=== PATIENT | male | born 2005 | race Caucasian/White ===

== ENCOUNTER 2025-06-27 08:56 | Emergency (ER) | payer BC, SELFPAY ==
[2025-06-27 09:00] VITALS: BP 121/65
[2025-06-27 09:49] LABS: Hematocrit 42.0 % (39.0-52.0); Hemoglobin 14.9 g/dL (13.0-18.0); Mean Corp Hgb Conc. 35.5 g/dL (33.0-37.0); Mean Corpuscular Volume 84.8 fL (80.0-94.0); Nucleated Red Blood Cells % 0 % (-); Platelet Count 184 10^3/uL (130-400); Red Cell Dist. Width 11.9 % (11.5-14.5)
[2025-06-27 09:58] LABS: ALT (SGPT) 24 U/L (0-50); AST (SGOT) 34 U/L (17-59); Albumin 4.5 g/dl (3.5-5.0); Alkaline Phosphatase 84 U/L (38-126); Blood Urea Nitrogen 15 mg/dl (9-20); Calcium 9.1 mg/dl (8.4-10.2); Carbon Dioxide 24 mmol/L (22-30); Chloride 100 mmol/L (98-107); Glucose 115 mg/dl (70-99); Potassium 4.1 mmol/L (3.5-5.1); Sodium 133 mmol/L (135-145); Total Protein 7.3 g/dl (6.3-8.2); eGFR > 60.00
[2025-06-27 10:02] LABS: COVID-19 Antigen Negative (Negative)
--- NOTE | 2025-06-27 10:08 | ED.GENMED ---
History of Present Illness
<Ishan Gibson DO, Resident - Last Filed: 06/27/25 11:00>
General
Chief Complaint: Fever
Source: patient and family
Exam Limitations: none
Time Seen by Provider: 06/27/25 09:42
Nursing documentation reviewed up to this point in time: agreed with
History of Present Illness
History of Present Illness:
Shabbir is a 20M w/ no significant past medical history who is presenting with fever, cough, and congestion x 2 days. Patient notes symptoms, particularly fever, starting 2 days ago. Fever ranged from 101-103 over the past two days but upon waking
this morning was 104.6 which prompted the ED visit. He also endorses congestion and cough productive of clear to highlighter yellow sputum for 2 days that has been steadily improving. Patient notes that he has been working at the [employer] while he is on
winter break, but endorses no sick contacts at home. Associated symptoms include neck discomfort, brain fog and mild headache that is aborted with Advil. Has been taking 400 mg Advil intermittently and no Tylenol. Otherwise denies dizziness, chest
pain, SOB, abdominal pain, n/v/d, wheezing, urinary sx, photophobia, phonophobia. Notes he is up to date on vaccinations except seasonal flu.
Past History
<Ishan Gibson DO, Resident - Last Filed: 06/27/25 11:00>
Past History
ED Past Medical History: None
Review of Systems
<Ishan Gibson DO, Resident - Last Filed: 06/27/25 11:00>
Review of Systems
Allergies reviewed?: Yes
All Other Systems: ROS reviewed and negative except as documented in HPI and ROS
Phy Exam
<Ishan Gibson DO, Resident - Last Filed: 06/27/25 11:00>
Physical Exam
Physical Exam:
General: well-developed, well-nourished male in no acute distress, sitting under a bright hospital room light.
HEENT: Normocephalic, atraumatic. EOMI without pain. Sclera anicteric, MM moist.
Neck: Supple, normal ROM, no paraspinal tenderness, Kernig's negative, Brudzinski negative, shotty lymphadenopathy in the anterior and posterior cervical chain.
CV: RRR, no murmurs rubs or gallops, nl S1, S2
Resp: CTAB in all lung bueno, no wheezing, rales, rhonchi, or stridor.
Ab: Soft, nondistended.
Neuro: Awake, alert. Moving all 4s.
Psych: Calm, normal affect.
Scores
<Ishan Gibson DO, Resident - Last Filed: 06/27/25 11:00>
Heart Failure Risk
Heart Failure Risk Score: Not Applicable
Heart Score for Chest Pain Patients
STEMI patient?: Not applicable
Withdrawal Assessment of Alcohol
Withdrawal Assessment Completed?: Not applicable
Course
<Ishan Gibson DO, Resident - Last Filed: 06/27/25 11:00>
Orders/Labs/Results
Orders:
Orders
06/27/25 09:25
COVID-19 Antigen Urgent
Source: Nasal Swab
Complete Blood Count/With Diff Urgent
Comprehensive Metabolic Panel Urgent
Influenza A+B Rapid Molecular Urgent
DEBRA Source: Nasal Swab
Specimen Description:
Abnormal Lab Results
06/27/25
09:25
Absolute Lymphs (auto) 0.4 L 10^3/uL
(1.2-3.4)
Neutrophils % 83.6 H %
(42.2-75.2)
Lymphocytes % 6.5 L %
(20.5-51.1)
Sodium 133 L mmol/L
(135-145)
Glucose 115 H mg/dl
(70-99)
06/27/25 09:25
06/27/25 09:25
Vital Signs
Initial and Last Documented VS:
Initial Vital Signs
Pulse Resp BP Pulse Ox
82 18 121/65 100
06/27/25 09:00 06/27/25 09:00 06/27/25 09:00 06/27/25 09:00
Last Documented Vital Signs
Pulse Resp BP Pulse Ox
82 18 121/65 100
06/27/25 09:00 06/27/25 09:00 06/27/25 09:00 06/27/25 10:12
<Donna Krishnan, DO - Last Filed: 06/27/25 10:45>
Orders/Labs/Results
Orders:
Orders
06/27/25 09:25
COVID-19 Antigen Urgent
Source: Nasal Swab
Complete Blood Count/With Diff Urgent
Comprehensive Metabolic Panel Urgent
Influenza A+B Rapid Molecular Urgent
DEBRA Source: Nasal Swab
Specimen Description:
Abnormal Lab Results
06/27/25
09:25
Absolute Lymphs (auto) 0.4 L 10^3/uL
(1.2-3.4)
Neutrophils % 83.6 H %
(42.2-75.2)
Lymphocytes % 6.5 L %
(20.5-51.1)
Sodium 133 L mmol/L
(135-145)
Glucose 115 H mg/dl
(70-99)
06/27/25 09:25
06/27/25 09:25
Vital Signs
Initial and Last Documented VS:
Initial Vital Signs
Pulse Resp BP Pulse Ox
82 18 121/65 100
06/27/25 09:00 06/27/25 09:00 06/27/25 09:00 06/27/25 09:00
Last Documented Vital Signs
Pulse Resp BP Pulse Ox
82 18 121/65 100
06/27/25 09:00 06/27/25 09:00 06/27/25 09:00 06/27/25 10:12
<Ishan Gibson DO, Resident - Last Filed: 06/27/25 11:00>
MDM/Problems Addressed
Differential Diagnosis Includes:
Influenza, COVID, other viral illness, doubt meningitis, doubt pneumonia
MDM/Problems Addressed:
This is a 20M presenting with 2 days of fevers with cough and congestion. PE only significant for lymphadenopathy. Patient with some neck discomfort but he is fully vaccinated and does not have meningeal signs. WBC WNL. Flu positive. Patient is
within the window for oseltamivir but may provide little benefit. Otherwise recommend supportive care. Patient counseled on using Tylenol in lieu of Advil to control fevers.
<Ishan Gibson DO, Resident - Last Filed: 06/27/25 11:00>
*Pulse Oximetry
SaO2: 100
Oxygen Mode of Delivery: Room air
Patient hypoxic: no
*Critical Care Note
Total Time (30-74mins, 75-104mins- exclusive of procedures): Not Applicable
ED Attending Note
<Ishan Gibson DO, Resident - Last Filed: 06/27/25 11:00>
-
Portions of this chart may have been created with voice recognition software.� Occasional wrong word or��sound alike� substitutions may have occurred due to the inherent limitations of voice recognition software.
<Donna Krishnan DO - Last Filed: 06/27/25 10:45>
ED Attending Note
Patient seen and examined by attending physician: Yes
I performed the substantive portion of visit, reviewed & personally made and approve the management plan that is documented in note by myself or MICHAEL.: Yes
I performed a history and physical exam of patient and discussed management with resident, I reviewed resident's note and agree with documented findings and plan of care.: Yes
ED Attending Note:
20-year-old male without significant past medical history presenting for 2 days of fever and upper respiratory symptoms. Patient notes cough, congestion, headache, neck pain, body aches. Denies known direct sick contacts. He has been taking
Tylenol and Motrin for his symptoms, had Advil this morning due to fever of 104. He did not have his flu shot this year. Vital signs on arrival are normal, with appropriately defervesced temperature.
On exam patient is resting comfortably, nontoxic. Unremarkable cardiac and pulmonary exam. Symptoms appear most consistent with a viral URI. No meningismus or nuchal rigidity. Patient had viral swabs and laboratory analysis obtained prior to my
assessment, positive for influenza, consistent with symptoms. Ultimately feel stable for discharge with supportive therapy. Patient offered Tamiflu. He would like prescription. Did discuss side effects of the medication as well as expected
course of influenza. Patient verbalized understanding, as well as mother at bedside
Discharge Plan
Discharge Date and Time
Print Language: PASHTO
== END 2025-06-27 11:06 | disposition home or self-care (01) ==
LOC: EMR 08:56
PROVIDERS: Emergency Medicine; EMERGENCY PHYSICIAN Student in an Organized Health Care Education/Training Program; FAMILY PHYSICIAN Internal Medicine
DX: J11.1 Influenza due to unidentified influenza virus with other respiratory manifestations (principal); R51.9 Headache, unspecified; M54.2 Cervicalgia; Z11.52 Encounter for screening for COVID-19; F84.5 Asperger's syndrome
CPT/HCPCS: 99283; 80053; 85025; 87502; 87811